=== PATIENT | male | born 1985 | race Caucasian/White ===

== ENCOUNTER 2017-07-14 11:32 | Emergency (ER) | payer SELFPAY ==
[~2017-07-14] VITALS: Ht 188 cm; Wt 104.3 kg
[2017-07-14 12:01] VITALS: BP 148/90
== END 2017-07-14 13:17 | disposition home or self-care (01) ==
LOC: ER 11:32 → EDBD 11:32 → ER 13:17
DX: S61.412A Laceration without foreign body of left hand, initial encounter (principal); W26.0XXA Contact with knife, initial encounter; Y93.89 Activity, other specified; Y99.8 Other external cause status; Y92.69 Other specified industrial and construction area as the place of occurrence of the external cause
CPT/HCPCS: 12001

== ENCOUNTER 2017-07-23 15:54 | Emergency (ER) | payer SELFPAY ==
[~2017-07-23] VITALS: Ht 188 cm; Wt 99.8 kg
[2017-07-23 16:20] VITALS: BP 142/99
== END 2017-07-23 16:43 | disposition home or self-care (01) ==
LOC: ER 15:56
DX: S61.412D Laceration without foreign body of left hand, subsequent encounter (principal); X58.XXXD Exposure to other specified factors, subsequent encounter